=== PATIENT | male | born 1980 | race Hispanic/Latino ===

== ENCOUNTER 2020-09-24 19:11 | Inpatient (IN) | payer OTHER, SELFPAY ==
[~2020-09-24 19:11] MED LIST: Iopamidol 370 76% 100 ML VIAL ONE
[2020-09-24] MEDS ORDERED: Fentanyl 100 MCG/2 ML VIAL ONE ×2 (19:22→22:25)
[2020-09-24 20:05] LABS: #Basophils 0.1 thou/uL (0.0-0.2); #Lymphocytes 1.7 thou/uL (1.20-3.40); #Monocytes 0.9 thou/uL (0.11-0.59); #Neutrophils 15.7 thou/uL (1.40-6.50); %Basophils 0.3 % (0.0-1.0); %Eosinophils 0.2 % (0.0-10.0); %Lymphocytes 9.1 % (21.0-51.0); %Monocytes 5.1 % (0.0-10.0); %Neutrophils 85.4 % (42.0-75.0); Hemoglobin 12.7 g/dL (14.0-18.0); Mean Corpuscular Hemoglobin 30.3 pg (27.0-31.0); Mean Corpuscular Volume 89.1 fL (78.0-98.0); Mean Platelet Volume 8.7 fL (7.4-10.4); Platelet Count 194 thou/uL (130-400); RBC Distribution Width 11.8 % (11.5-14.5); White Blood Cell (WBC) Count 18.4 thou/uL (4.8-10.8)
[2020-09-24] MEDS ORDERED: Boostrix 0.5 ML (Tdap) VIAL ONE (20:12)
[2020-09-24] MEDS ORDERED: CEFAZOLIN 1 GM VIAL ONE (20:12)
[2020-09-24] MEDS ORDERED: Sterile Water 10 ML ONE (20:13)
[2020-09-24 20:21] LABS: ALT (SGPT) 61 U/L (8-55); AST (SGOT) 105 U/L (5-34); Albumin 3.7 g/dL (3.5-5.0); Alkaline Phosphatase 95 U/L (40-110); Anion Gap 14 mmol/L (10-20); BUN (Urea Nitrogen) 18 mg/dL (8.9-20.6); Bilirubin, Total 0.5 mg/dL (0.2-1.2); Calc. Creatinine Clearance 0 mL/min (70-130); Calcium 7.9 mg/dL (7.8-10.44); Carbon Dioxide 19 mmol/L (22-29); Chloride 105 mmol/L (98-107); Globulin 3.2 g/dL (2.4-3.5); Glucose 122 mg/dL (70-105); Lipase 57 U/L (8-78); Potassium 3.4 mmol/L (3.5-5.1); Protein, Total 6.9 g/dL (6.0-8.3); Sodium 135 mmol/L (136-145)
[2020-09-24] MEDS ORDERED: Lidocaine 1% PF 5 ML VIAL ONE (20:46)
[2020-09-24] MEDS ORDERED: HYDROmorphone 0.5 MG/0.5 ML SYRINGE ONE (20:48)
[2020-09-24] MEDS ORDERED: Lidocaine 1% (PF) 30 ML VIAL ONE (20:49)
[2020-09-24] MEDS ORDERED: Promethazine HCl 25 MG/ML VIAL IM PRN (22:16)
[2020-09-24] MEDS ORDERED: Ondansetron PF 4 MG/2 ML Vial IVP PRN (22:16)
[2020-09-24] MEDS ORDERED: HumaLOG 300 UNITS/3 ML VIAL SC PRN (22:16)
[2020-09-24] MEDS ORDERED: Dextrose 50% Abboject 50 ML SYRINGE SLOW IVP PRN (22:16)
[2020-09-24] MEDS ORDERED: Dextrose 5% in Water 1,000 ML IV PRN (22:16)
[2020-09-24] MEDS ORDERED: Rib Fracture Protocol PO SCH (22:30)
[2020-09-24] MEDS ORDERED: Cyclobenzaprine 10 MG TAB PO PRN (23:45)
[2020-09-25] MEDS: Acetaminophen 500 MG TAB PO SCH ×5 (00:39→23:43)
[2020-09-25] MEDS: traMADol HCl 50 MG TAB PO SCH ×5 (00:39→23:43)
[2020-09-25] MEDS: Ibuprofen 800 MG TAB PO SCH ×3 (00:40→11:02)
[2020-09-25] MEDS: Sodium Chloride 0.9% 1,000 ML IV SCH ×4 (00:44→17:40)
[2020-09-25 05:36] LABS: #Lymphocytes 1.1 thou/uL (1.20-3.40); #Monocytes 0.6 thou/uL (0.11-0.59); #Neutrophils 8.1 thou/uL (1.40-6.50); %Basophils 0.2 % (0.0-1.0); %Eosinophils 0.1 % (0.0-10.0); %Lymphocytes 11.5 % (21.0-51.0); %Monocytes 5.8 % (0.0-10.0); %Neutrophils 82.4 % (42.0-75.0); Hemoglobin 11.3 g/dL (14.0-18.0); Mean Corpuscular Hemoglobin 30.5 pg (27.0-31.0); Mean Corpuscular Volume 89.7 fL (78.0-98.0); Mean Platelet Volume 8.6 fL (7.4-10.4); Platelet Count 179 thou/uL (130-400); RBC Distribution Width 11.7 % (11.5-14.5); Red Blood Cell (RBC) Count 3.71 mill/uL (4.70-6.10); White Blood Cell (WBC) Count 9.8 thou/uL (4.8-10.8)
[2020-09-25 05:51] LABS: SARS-CoV-2 PCR by NAA Not Detected (NotDetected)
[2020-09-25 05:58] LABS: ALT (SGPT) 52 U/L (8-55); AST (SGOT) 76 U/L (5-34); Albumin 3.6 g/dL (3.5-5.0); Alkaline Phosphatase 80 U/L (40-110); Anion Gap 14 mmol/L (10-20); BUN (Urea Nitrogen) 16 mg/dL (8.9-20.6); Bilirubin, Total 0.9 mg/dL (0.2-1.2); Calc. Creatinine Clearance 0 mL/min (70-130); Carbon Dioxide 21 mmol/L (22-29); Chloride 107 mmol/L (98-107); Globulin 2.9 g/dL (2.4-3.5); Glucose 117 mg/dL (70-105); Potassium 3.8 mmol/L (3.5-5.1); Protein, Total 6.5 g/dL (6.0-8.3); Sodium 138 mmol/L (136-145)
[2020-09-25] MEDS ORDERED: Famotidine/PF 20 mg/2ml Vial SLOW IVP SCH (09:00)
[2020-09-25] MEDS: Gabapentin 300 MG CAP PO SCH ×3 (09:42→21:01)
[2020-09-25] MEDS ORDERED: Morphine 2 MG/ML VIAL SLOW IVP PRN (11:22)
[2020-09-25] MEDS: Ketorolac Tromethamine 30 MG/ML VIAL IVP SCH ×3 (11:29→23:44)
[2020-09-26] MEDS: Ketorolac Tromethamine 30 MG/ML VIAL IVP SCH ×4 (05:21→23:28)
[2020-09-26] MEDS: traMADol HCl 50 MG TAB PO SCH ×4 (05:22→23:27)
[2020-09-26] MEDS: Acetaminophen 500 MG TAB PO SCH ×4 (05:22→23:28)
[2020-09-26] MEDS: Sodium Chloride 0.9% 1,000 ML IV SCH ×2 (05:22→16:23)
[2020-09-26 06:21] LABS: #Eosinphils 0.1 thou/uL (0.0-0.7); #Lymphocytes 1.5 thou/uL (1.20-3.40); #Monocytes 0.5 thou/uL (0.11-0.59); #Neutrophils 5.3 thou/uL (1.40-6.50); %Basophils 0.4 % (0.0-1.0); %Eosinophils 1.3 % (0.0-10.0); %Lymphocytes 19.8 % (21.0-51.0); %Monocytes 7.2 % (0.0-10.0); %Neutrophils 71.2 % (42.0-75.0); Hemoglobin 9.7 g/dL (14.0-18.0); Mean Corpuscular HGB CONC 34.1 g/dL (32.0-36.0); Mean Platelet Volume 8.5 fL (7.4-10.4); Platelet Count 147 thou/uL (130-400); RBC Distribution Width 11.7 % (11.5-14.5); Red Blood Cell (RBC) Count 3.12 mill/uL (4.70-6.10); White Blood Cell (WBC) Count 7.4 thou/uL (4.8-10.8)
[2020-09-26] MEDS: Gabapentin 300 MG CAP PO SCH ×3 (08:48→20:09)
[2020-09-26] MEDS: cloNIDine 0.2 MG TAB PO SCH ×3 (12:04→23:27)
[2020-09-26] MEDS: Ascorbic Acid 500 mg Chewable Tablet PO SCH (20:08)
[2020-09-26] MEDS: Ferrous Sulfate 325 MG TAB PO SCH (20:09)
[2020-09-27] MEDS: Sodium Chloride 0.9% 1,000 ML IV SCH (00:32)
[2020-09-27] MEDS: traMADol HCl 50 MG TAB PO SCH ×3 (05:27→18:18)
[2020-09-27] MEDS: Acetaminophen 500 MG TAB PO SCH ×3 (05:27→18:18)
[2020-09-27] MEDS: Ketorolac Tromethamine 30 MG/ML VIAL IVP SCH ×3 (05:27→18:19)
[2020-09-27] MEDS: cloNIDine 0.2 MG TAB PO SCH ×3 (05:29→18:19)
[2020-09-27] MEDS: Gabapentin 300 MG CAP PO SCH ×3 (08:18→21:08)
[2020-09-27] MEDS: Ferrous Sulfate 325 MG TAB PO SCH ×2 (08:18→21:08)
[2020-09-27] MEDS: Ascorbic Acid 500 mg Chewable Tablet PO SCH ×2 (08:18→21:08)
[2020-09-28] MEDS: traMADol HCl 50 MG TAB PO SCH ×4 (00:13→17:22)
[2020-09-28] MEDS: Ketorolac Tromethamine 30 MG/ML VIAL IVP SCH ×4 (00:14→17:19)
[2020-09-28] MEDS: Acetaminophen 500 MG TAB PO SCH ×4 (00:14→17:25)
[2020-09-28] MEDS: cloNIDine 0.2 MG TAB PO SCH ×4 (00:15→17:20)
[2020-09-28 06:26] LABS: #Eosinphils 0.2 thou/uL (0.0-0.7); #Monocytes 0.4 thou/uL (0.11-0.59); #Neutrophils 3.3 thou/uL (1.40-6.50); %Basophils 0.1 % (0.0-1.0); %Eosinophils 3.6 % (0.0-10.0); %Monocytes 7.4 % (0.0-10.0); %Neutrophils 54.8 % (42.0-75.0); Hemoglobin 10.3 g/dL (14.0-18.0); Mean Corpuscular HGB CONC 33.9 g/dL (32.0-36.0); Mean Corpuscular Hemoglobin 30.7 pg (27.0-31.0); Mean Corpuscular Volume 90.6 fL (78.0-98.0); Mean Platelet Volume 8.4 fL (7.4-10.4); Platelet Count 193 thou/uL (130-400); RBC Distribution Width 12.1 % (11.5-14.5); Red Blood Cell (RBC) Count 3.37 mill/uL (4.70-6.10)
[2020-09-28] MEDS: Ascorbic Acid 500 mg Chewable Tablet PO SCH ×2 (08:29→21:36)
[2020-09-28] MEDS: Ferrous Sulfate 325 MG TAB PO SCH ×2 (08:30→21:36)
[2020-09-28] MEDS: Gabapentin 300 MG CAP PO SCH ×3 (08:30→21:35)
[2020-09-28] MEDS: Enoxaparin Sodium 40 MG/0.4 ML SYRINGE SC SCH (21:36)
[2020-09-29] MEDS: cloNIDine 0.2 MG TAB PO SCH ×5 (00:03→23:16)
[2020-09-29] MEDS: Acetaminophen 500 MG TAB PO SCH ×5 (00:03→23:16)
[2020-09-29] MEDS: traMADol HCl 50 MG TAB PO SCH ×5 (00:03→23:15)
[2020-09-29] MEDS: Ketorolac Tromethamine 30 MG/ML VIAL IVP SCH ×5 (00:04→23:14)
[2020-09-29 05:17] LABS: #Basophils 0.1 thou/uL (0.0-0.2); #Eosinphils 0.2 thou/uL (0.0-0.7); #Monocytes 0.6 thou/uL (0.11-0.59); #Neutrophils 3.1 thou/uL (1.40-6.50); %Eosinophils 3.5 % (0.0-10.0); %Lymphocytes 33.3 % (21.0-51.0); %Monocytes 9.3 % (0.0-10.0); %Neutrophils 52.8 % (42.0-75.0); Hemoglobin 11.1 g/dL (14.0-18.0); Mean Corpuscular Hemoglobin 29.7 pg (27.0-31.0); Mean Platelet Volume 7.6 fL (7.4-10.4); Platelet Count 231 thou/uL (130-400); RBC Distribution Width 12.2 % (11.5-14.5); Red Blood Cell (RBC) Count 3.73 mill/uL (4.70-6.10); White Blood Cell (WBC) Count 5.9 thou/uL (4.8-10.8)
[2020-09-29] MEDS: Polyethylene Glycol 3350 17 GM Packet PO SCH (09:55)
[2020-09-29] MEDS: Senokot S 8.6-50 MG TAB PO SCH ×2 (09:56→20:33)
[2020-09-29] MEDS: Ferrous Sulfate 325 MG TAB PO SCH ×2 (09:56→20:34)
[2020-09-29] MEDS: Gabapentin 300 MG CAP PO SCH ×3 (09:56→20:34)
[2020-09-29] MEDS: Ascorbic Acid 500 mg Chewable Tablet PO SCH ×2 (09:57→20:34)
[2020-09-29] MEDS: Lidocaine 5% Patch TD SCH (09:57)
[2020-09-29] MEDS ORDERED: Ibuprofen 600 MG TAB PO SCH (10:45)
[2020-09-29] MEDS: Ibuprofen 200 MG TAB PO SCH ×2 (11:33→17:56)
[2020-09-29] MEDS: Enoxaparin Sodium 40 MG/0.4 ML SYRINGE SC SCH (20:35)
[2020-09-29] MEDS ORDERED: LIDOCAINE Patch Removal TOP SCH (21:00)
[2020-09-30] MEDS: Ibuprofen 200 MG TAB PO SCH ×2 (03:25→12:44)
[2020-09-30] MEDS: traMADol HCl 50 MG TAB PO SCH ×2 (05:41→12:45)
[2020-09-30] MEDS: Acetaminophen 500 MG TAB PO SCH ×2 (05:41→12:45)
[2020-09-30] MEDS: Ketorolac Tromethamine 30 MG/ML VIAL IVP SCH (05:41)
[2020-09-30] MEDS: cloNIDine 0.2 MG TAB PO SCH ×2 (05:42→12:44)
[2020-09-30] MEDS: Senokot S 8.6-50 MG TAB PO SCH (09:32)
[2020-09-30] MEDS: Gabapentin 300 MG CAP PO SCH (09:32)
[2020-09-30] MEDS: Ascorbic Acid 500 mg Chewable Tablet PO SCH (09:32)
[2020-09-30] MEDS: Ferrous Sulfate 325 MG TAB PO SCH (09:32)
[2020-09-30] MEDS: Polyethylene Glycol 3350 17 GM Packet PO SCH (09:32)
[2020-09-30] MEDS: Lidocaine 5% Patch TD SCH (09:33)
[2020-09-30 11:50] VITALS: TEMP 97.6
[2020-09-30 13:48] VITALS: BP 109/75
== END 2020-09-30 13:40 | disposition home or self-care (01) | DRG 964 ==
LOC: ERS 19:11 → SURG B 22:03
PROVIDERS: ADMIT Surgery; ATTEND Surgery
PROC: 0W9B00Z Drainage of Left Pleural Cavity with Drainage Device, Open Approach (ICD-10-PCS; principal; 2020-09-24)
DX: S06.0X9A Concussion with loss of consciousness of unspecified duration, initial encounter (principal); S27.2XXA Traumatic hemopneumothorax, initial encounter; S36.031A Moderate laceration of spleen, initial encounter; S22.42XA Multiple fractures of ribs, left side, initial encounter for closed fracture; Z20.822 Contact with and (suspected) exposure to COVID-19; R40.2412 Glasgow coma scale score 13-15, at arrival to emergency department; D64.9 Anemia, unspecified; V54.6XXA Passenger in pick-up truck or van injured in collision with heavy transport vehicle or bus in traffic accident, initial encounter
CPT/HCPCS: 32551; 36415; 36416; 70450; 71045; 71260; 72125; 74177; 80053; 83605; 83690; 85025; 86850; 86900; 86901; 87635; 90471; 90715; 93005; 94640; 96374; 96375; 96376; G0390; J0690; J1170; J1650; J1885; J2001; J2270; J3010; J7620; Q9967; U0003; U0005